=== PATIENT | male | born 1980 | race Hispanic/Latino ===

== ENCOUNTER 2017-07-14 20:26 | Emergency (ER) | payer SELFPAY ==
[2017-07-14] MEDS ORDERED: DEXAMETHASONE SOD PHOSPHATE 10MG/ML 1ML VIAL ONE (21:18)
[2017-07-14] MEDS ORDERED: FAMOTIDINE 20MG TAB 20 MG TAB ONE (21:19)
[2017-07-14] MEDS ORDERED: DiphenhydrAMINE HCL 50 MG/ML VIAL ONE (21:19)
== END 2017-07-14 22:09 | disposition home or self-care (01) ==
LOC: EDH 20:26
DX: R21 Rash and other nonspecific skin eruption (principal); L29.9 Pruritus, unspecified; I25.10 Atherosclerotic heart disease of native coronary artery without angina pectoris; E11.9 Type 2 diabetes mellitus without complications; Z72.0 Tobacco use
CPT/HCPCS: 96372 ×2; 99284; J1100; J1200

== ENCOUNTER 2021-02-06 22:36 | Emergency (ER) | payer SELFPAY ==
[~2021-02-06] VITALS: Ht 167.6 cm; Wt 96.2 kg
[2021-02-06] MEDS ORDERED: 0.9%NACL 1000ML 1,000 ML IV SCH (23:00)
[2021-02-06 23:07] VITALS: BP 158/97
[2021-02-06 23:08] LABS: BASOPHILS % (AUTO) 1.2 % (0.0-5.0); EOSINOPHILS % (AUTO) 2.8 % (0.0-8.0); HEMATOCRIT 45.2 % (42-54); LYMPHOCYTES % (AUTO) 33.3 % (21.0-51.0); MEAN CORPUSCULAR HGB CONC 36.3 g/dL (32.0-36.0); MEAN CORPUSCULAR VOLUME 90.9 fL (79-99); MONOCYTES % (AUTO) 13.8 % (3.0-13.0); NEUTROPHILS % (AUTO) 48.8 % (40.0-77.0); PLATELET COUNT (AUTO) 236 K/uL (130-400); RED BLOOD CELL COUNT(AUTO) 4.97 MIL/uL (4.50-6.20); WHITE BLOOD COUNT (AUTO) 6.9 K/uL (4.8-10.8)
[2021-02-06 23:10] LABS: ABG OXYGEN SATURATION 71.4 % (95.0-99.0); BASE EXCESS,VENOUS BLOOD GAS 1.1 (-2.0-3.0); HCO3,VENOUS BLOOD GAS 26.4 (21.0-28.0); PCO2,VENOUS BLOOD GAS 44 (35-48); PH,VENOUS BLOOD GAS 7.393 (7.350-7.450)
[2021-02-06 23:14] LABS: APPEARANCE,URINE Clear (CLEAR); BILIRUBIN,URINE Negative (NEGATIVE); COLOR,URINE Yellow (YELLOW); GLUCOSE, URINE (UA) >=1000 mg/dL (NEGATIVE); KETONES,URINE Negative (NEGATIVE); LEUKOCYTE ESTERASE ,URINE Small (NEGATIVE); NITRATE,URINE Negative (NEGATIVE); OCCULT BLOOD,URINE Negative (NEGATIVE); PROTEIN,URINE Negative (NEGATIVE)
[2021-02-06 23:24] LABS: BILIRUBIN,TOTAL 0.3 mg/dL (0.2-1.0); CREATININE 1.3 mg/dL (0.5-1.5); TOTAL PROTEIN, SERUM 8.3 g/dL (6.0-8.3)
[2021-02-06 23:30] LABS: BACTERIA,URINE Rare /HPF (None Seen); SQUAMOUS EPITHELIAL CELL,UR Few /HPF (0-2)
[2021-02-06 23:31] LABS: YEAST,URINE BUDDING Rare /HPF (None Seen)
[2021-02-06] MEDS ORDERED: CEFTRIAXONE 1G VIAL ONE (23:51)
[2021-02-07] LABS: AMPHET/METH SCREEN,URINE NEGATIVE (NEGATIVE); BARBITURATE SCREEN, URINE NEGATIVE (NEGATIVE); BENZODIAZEPINES SCREEN,URINE NEGATIVE (NEGATIVE); CANNABINOID SCREEN,URINE NEGATIVE (NEGATIVE); COCAINE SCREEN,URINE POSITIVE (NEGATIVE); OPIATE SCREEN,URINE NEGATIVE (NEGATIVE); PHENCYCLIDINE SCREEN,URINE NEGATIVE (NEGATIVE)
[2021-02-07] MEDS ORDERED: 0.9%NACL 1000ML 1,000 ML IV SCH
[2021-02-07] MEDS ORDERED: CEFTRIAXONE 1G VIAL IVP ONE
[2021-02-07] MEDS ORDERED: 0.9%NACL 1000ML 1,000 ML IV ONE
[2021-02-07] MEDS ORDERED: INSULIN HUMULIN R 100 UNIT/ML 3ML SQ ONE (01:00)
[2021-02-07] MEDS ORDERED: CEPH500B PO (01:02)
[2021-02-07] MEDS ORDERED: METF-444 PO (01:02)
== END 2021-02-07 01:34 | disposition home or self-care (01) ==
LOC: EDH 22:36
DX: E11.65 Type 2 diabetes mellitus with hyperglycemia (principal); N39.0 Urinary tract infection, site not specified; E86.9 Volume depletion, unspecified; I10 Essential (primary) hypertension; F17.200 Nicotine dependence, unspecified, uncomplicated; Z79.4 Long term (current) use of insulin
CPT/HCPCS: 36415; 36600; 71045; 80053; 80305; 81001; 82803; 82948; 83605; 84484; 85025; 87088; 93005; 96361; 96372; 96374; 99285; J0696; J1815; J7030